=== PATIENT | female | born 1970 | race Caucasian/White ===

== ENCOUNTER 2019-10-08 07:56 | Day surgery (SDC) | payer BC ==
[~2019-10-08] VITALS: Ht 165.1 cm; Wt 93.1 kg
[2019-10-08 08:19] VITALS: BP 129/89; PULSE 95; TEMP 98
[2019-10-08] MEDS ORDERED: ALLEGRA ALLERGY60 MG PO (08:31)
[2019-10-08] MEDS ORDERED: PROTONIX 40MG T40 MG PO (08:31)
[2019-10-08 09:25] VITALS: BP 107/80; PULSE 85; TEMP 97.5
--- NOTE | 2019-10-08 09:25 | NUR ---
TO BAY 3 PER CART FROM ENDOSCOPY. ALERT ORIENTED X3, TALKING TO STAFF AND SISTER IN LAW. AMBULATED TO RECLINER WITH ASSIST AND TOLERATED WELL.
[2019-10-08 09:40] VITALS: BP 118/71; PULSE 82
--- NOTE | 2019-10-08 09:40 | NUR ---
RECEIVED WATER, REFUSED ANYTHING TO EAT AT THIS TIME. PATIENT STATED SHE WANTED TO GO OUT TO EAT AFTER DISCHARGE. DENIES PAIN OR DISCOMFORT AT THIS TIME.
--- NOTE | 2019-10-08 09:45 | NUR ---
DR MATHIS INTO TALK WITH PATIENT AND HER SISTER IN LAW- VIGNESH.
--- NOTE | 2019-10-08 09:53 | NUR ---
RECEIVED DISCHARGE INSTRUCTIONS AND VERBALIZED UNDERSTANDING DISCONTINUED IV AND INT- CATHETER INTACT.
--- NOTE | 2019-10-08 10:00 | NUR ---
DISCHARGED PER WC BY NURSING STAFF TO PRIVATE CAR IN CARE OF SISTER IN LAW- VIGNESH.
== END 2019-10-08 10:24 | disposition home or self-care (01) ==
LOC: SDCO 07:56
DX: K21.9 Gastro-esophageal reflux disease without esophagitis (principal); K29.30 Chronic superficial gastritis without bleeding; J45.909 Unspecified asthma, uncomplicated; G43.909 Migraine, unspecified, not intractable, without status migrainosus; Z88.8 Allergy status to other drugs, medicaments and biological substances; Z88.1 Allergy status to other antibiotic agents; Z90.49 Acquired absence of other specified parts of digestive tract; Z90.710 Acquired absence of both cervix and uterus; Z87.891 Personal history of nicotine dependence
CPT/HCPCS: J2704; J7030